=== PATIENT | female | born 1985 | race African-American/Black ===

== ENCOUNTER 2018-01-31 07:13 | Emergency (ER) | payer MEDICAID ==
[~2018-01-31] VITALS: Ht 162.6 cm; Wt 59.0 kg
[2018-01-31 07:15] VITALS: BP 104/56; PULSE 71; RESP 18; TEMP 98.2
[2018-01-31] MEDS ORDERED: IRON1CAP4 PO (07:23)
[2018-01-31] MEDS ORDERED: ONDANSETRON HCL 4 MG/2 ML VIAL IV PUSH ONE (07:30)
[2018-01-31] MEDS ORDERED: MORPHINE SULFATE 4 MG/ML INJ IV PUSH ONE (07:30)
--- NOTE | 2018-01-31 07:48 | PD ---
HPI Chief Complaint: Related Problem Time Seen by Provider: 07:15 Travel History International Travel<30 days: No Contact w/Intl Traveler<30days: No Traveled to known affect area: No History of Present Illness HPI This is a 32-year-old Ab1, who is at roughly 9 weeks by date, presents here from [place] on the ER as a transfer. Patient is complaining of severe abdominal cramping with vaginal bleeding. The physician at the [place] emergency department reported a large amount of vaginal bleeding with clots. The patient states that she thinks she may have passed some tissue. She reports it had the consistency of liver. She states she is pretty sure that she has a Rh+ blood type. There are no other complaints at time of examination. PFSH Past Medical History Medical History: Denies Significant Hx Tetanus Vaccination: < 5 Years Influenza Vaccination: No ?: LMP: 11-27 Past Surgical History Section: Yes (X4) Social History Alcohol Use: No Tobacco Use: No Substance Use: No Allergies-Medications (Allergen,Severity, Reaction): Coded Allergies: Sulfa (Sulfonamide Antibiotics) (Verified Allergy, Severe, Swelling, ) Reported Meds & Prescriptions Reported Meds & Active Scripts Active Lorcet (Hydrocodone-Acetaminophen) 5-325 mg Tab 1 Tab PO Q6H PRN 3 Days Reported Chromagen Softgel ([id number]) 75-60-1 Mg Capsule 1 Cap PO DAILY Review of Systems Except as stated in HPI: all other systems reviewed are Neg General / Constitutional: No: Fever, Chills HENT: No: Headaches, Lightheadedness Cardiovascular: No: Chest Pain or Discomfort, Palpitations Respiratory: No: Cough, Wheezing Gastrointestinal: Positive: Vomiting, Abdominal Pain (Cramping suprapubic.), No : Nausea Genitourinary: Positive: Vaginal Bleeding, No: Dysuria Musculoskeletal: No: Pain Neurologic: No: Weakness, Dizziness Psychiatric: No: Depression Physical Exam Narrative GENERAL: Well-nourished, well-developed patient, in no acute respiratory distress. SKIN: Focused skin assessment warm/dry. HEAD: Normocephalic/atraumatic. EYES: No scleral icterus. No injection or drainage. NECK: Supple, trachea midline. No JVD or lymphadenopathy. CARDIOVASCULAR: Regular rate and rhythm without murmurs, gallops, or rubs. RESPIRATORY: Breath sounds equal bilaterally. No accessory muscle use. GASTROINTESTINAL: Abdomen soft, nondistended. Patient has subjective pelvic cramping. She reports a "knot" like sensation in her suprapubic area. This was not appreciated on abdominal exam. MUSCULOSKELETAL: No cyanosis, or edema. BACK: Nontender without obvious deformity. No CVA tenderness. NEUROLOGICAL: Awake and alert. Cranial nerves II through XII intact. Motor and sensory grossly within normal limits. Five out of 5 muscle strength in all muscle groups. Normal speech. Data Data Last Documented VS Vital Signs Date Time Temp Pulse Resp B/P (MAP) Pulse Ox O2 Delivery O2 Flow Rate FiO2 01/31/18 08:23 97 Room Air 01/31/18 07:23 70 18 01/31/18 07:15 98.2 104/56 (72) Orders Orders Complete Blood Count With Diff (01/31/18 07:15) Basic Metabolic Panel (Bmp) (01/31/18 07:15) Prothrombin Time / Inr (Pt) (01/31/18 07:15) Act Partial Throm Time (Ptt) (01/31/18 07:15) Beta Hcg (Quant/Titer) (01/31/18 07:15) Iv Access Insert/Monitor (01/31/18 07:15) Ecg Monitoring (01/31/18 07:15) Oximetry (01/31/18 07:15) Type And Screen (01/31/18 07:15) Us Pelvis (Ques Preg/Ectopic) (01/31/18 07:15) Morphine Inj (Morphine Inj) (01/31/18 07:30) Ondansetron Inj (Zofran Inj) (01/31/18 07:30) Labs Laboratory Tests Test 01/31/18 07:45 White Blood Count 8.4 TH/MM3 Red Blood Count 3.81 MIL/MM3 Hemoglobin 12.1 GM/DL Hematocrit 35.1 % Mean Corpuscular Volume 92.2 FL Mean Corpuscular Hemoglobin 31.7 PG Mean Corpuscular Hemoglobin Concent 34.4 % Red Cell Distribution Width 13.8 % Platelet Count 180 TH/MM3 Mean Platelet Volume 8.0 FL CBC Comment AUTO DIFF Differential Total Cells Counted 100 Neutrophils % (Manual) 69 % Band Neutrophils % 20 % Lymphocytes % 8 % Monocytes % 3 % Neutrophils # (Manual) 7.5 TH/MM3 Differential Comment FINAL DIFF MANUAL Platelet Estimate NORMAL Platelet Morphology Comment NORMAL Prothrombin Time 10.1 SEC Prothromb Time International Ratio 1.0 RATIO Activated Partial Thromboplast Time 25.9 SEC Blood Urea Nitrogen 6 MG/DL Creatinine 0.55 MG/DL Random Glucose 94 MG/DL Calcium Level 8.1 MG/DL Sodium Level 136 MEQ/L Potassium Level 3.5 MEQ/L Chloride Level 103 MEQ/L Carbon Dioxide Level 26.1 MEQ/L Anion Gap 7 MEQ/L Estimat Glomerular Filtration Rate 155 ML/MIN Human Chorionic Gonadotropin, Quant 1562 MIU/ML [facility] Medical Decision Making Medical Screen Exam Complete: Yes Emergency Medical Condition: Yes Differential Diagnosis Threatened versus missed versus ectopic Narrative Course 32-year-old female presents with vaginal bleeding and abdominal cramping. Patient has demise by ultrasound. Beta-hCG is 1500. Rh is positive. The patient's hemoglobin and hematocrit are stable. Vital signs are within normal limits. I informed patient that she is in the process of having a miscarriage. She will be discharged home with a prescription for Lorcet for pain on top of the Motrin that we will recommend she takes. She is instructed to return if she develops any increased bleeding where she is soaking more than 2 pads per hour. I discussed this with the patient and she is amenable. She will follow-up with primary care physician or [facility] physician of her choice. Diagnosis Primary Impression: Inevitable miscarriage Additional Instructions: Motrin 600 mg every 8 hours 2-3 days. Take pain medication if the Motrin does not help control your pain. Return if bleeding more than 2 pads per hour. Follow-up with [facility] physician. Med/Other Pt SpecificInfo: Prescription(s) given Scripts Hydrocodone-Acetaminophen (Lorcet) 5-325 mg Tab 1 TAB PO Q6H Y for PAIN for 3 Days, #12 TAB 0 Refills Prov: German Suarez MD 01/31/18 Disposition: 01 DISCHARGE HOME Condition: Stable German Suarez MD Jan 31, 2018 07:48
[2018-01-31 08:22] LABS: HEMATOCRIT 35.1 % (35.0-46.0); HEMOGLOBIN 12.1 GM/DL (11.6-15.3); MEAN CELL VOLUME 92.2 FL (80.0-100.0); MEAN CORPUSCULAR HEMOGLOBIN 31.7 PG (27.0-34.0); MEAN CORPUSCULAR HGB CONC 34.4 % (32.0-36.0); PLATELET COUNT 180 TH/MM3 (150-450); RED BLOOD COUNT 3.81 MIL/MM3 (4.00-5.30); RED CELL DISTRIBUTION WIDTH 13.8 % (11.6-17.2); WHITE BLOOD COUNT 8.4 TH/MM3 (4.0-11.0)
[2018-01-31 08:23] VITALS: O2SAT 97
[2018-01-31 08:36] LABS: BICARBONATE 26.1 MEQ/L (21.0-32.0); CALCIUM 8.1 MG/DL (8.5-10.1); CREATININE 0.55 MG/DL (0.50-1.00); PROTHROMBIN TIME - PATIENT 10.1 SEC (9.8-11.6)
[2018-01-31 09:03] LABS: BANDS 20 % (0-6); LYMPHOCYTES 8 % (9-44); MONOCYTES 3 % (0-8); NEUTROPHIL # MANUAL DIFF 7.5 TH/MM3 (1.8-7.7); POLYS (SEG NEUTROPHILS) 69 % (16-70)
--- NOTE | 2018-01-31 09:26 | RADRPT ---
EXAM DATE/TIME: 01/31/2018 08:59 [facility] COMPARISON: No previous studies available for comparison. INDICATIONS : Vaginal bleeding. LAB(S): Beta-hC MEDICAL HISTORY : . SURGICAL HISTORY : section. ENCOUNTER: Initial ACUITY: 1 day PAIN SCORE: 6/10 LOCATION: Bilateral pelvis MEASUREMENTS: UTERUS: 15.2 x 6.5 x 5.9 cm ENDOMETRIAL STRIPE: >20 mm RIGHT OVARY: 3.1 x 2.7 x 1.4 cm LEFT OVARY: 3.0 x 3.1 x 2.2 cm FREE FLUID: No CROWN RUMP LENGTH: 2.1 cm = 8 WKS 5 DAYS FHR: No heart rate identified sonographically. FINDINGS: A gestational sac correlating to a gestational age of 11 weeks and 5 days use identified within the l ower uterine segment. [place]-rump length correlates to a gestational age of 8 weeks and 5 days. No car diac activity is confirmed within the pole. Findings are suggestive of demise and impendi ng . Clinical correlation is recommended. No free fluid is noted. The ovaries are unremarkabl e bilaterally. CONCLUSION: No cardiac activity identified within the pole with abnormally positioned gesta tional sac in the lower uterine segment suggesting demise and impending . Clinical katalina elation is recommended. Avery Andrews MD on January 31, 2018 at 9:20 Board Certified Radiologist. This report was verified electronically.
[2018-01-31] MEDS ORDERED: HYDR-3576 PO (10:17)
== END 2018-01-31 11:26 | disposition home or self-care (01) ==
LOC: NEPE 07:13
DX: O03.9 Complete or unspecified spontaneous abortion without complication (principal); R10.2 Pelvic and perineal pain; Z67.90 Unspecified blood type, Rh positive; Z88.2 Allergy status to sulfonamides
CPT/HCPCS: 76700; 80048; 84702; 85007; 85027; 85610; 85730; 86850; 86900; 86901; 96374; 96375; 99284; J2270; J2405